=== PATIENT | male | born 1960 | race Caucasian/White ===

== ENCOUNTER → 2018-06-06 | Outpatient (CLI) | payer OTHER ==
[~2018-06-06] MED LIST: ACET-1748 PO; AML5 PO; MYLL PO; OMEP-218 PO; WAR75 PO
[2018-06-06 07:31] LABS: PLATELET COUNT, AUTOMATED 239 K/uL (150-450)
--- NOTE | 2018-06-06 08:20 | EKG ---
[place] [facility] [place] NAME: HUONG MARLEY : [id number] MR: [id number]: [id number] EXAM DATE: ORDERING PHYSICIAN: OMER MARROQUIN TECHNOLOGIST: Xenia Rocha Reason : Blood Pressure : / mmHG Vent. Rate : 055 BPM Atrial Rate : 055 BPM P-R Int : 178 ms QRS Dur : 092 ms QT Int : 440 ms P-R-T Axes : 015 063 054 degrees QTc Int : 420 ms Sinus bradycardia Question previous inferior infarct Abnormal ECG No previous ECGs available Confirmed by BOB MATOS [id number] on 06/07/2018 5:37:30 AM Referred By: OMER MARROQUIN Confirmed By:BOB MATOS
== END ==
LOC: LAB 07:10
PROVIDERS: ATTEND Orthopaedic Surgery
DX: Z01.812 Encounter for preprocedural laboratory examination (principal); Z01.810 Encounter for preprocedural cardiovascular examination; R00.1 Bradycardia, unspecified; R94.31 Abnormal electrocardiogram [ECG] [EKG]
CPT/HCPCS: 36415; 82040; 82247; 82310; 82374; 82435; 82565; 82947; 84075; 84132; 84155; 84295; 84450; 84460; 84520; 85025; 93005

== ENCOUNTER → 2018-11-21 | Outpatient (CLI) | payer OTHER | LOC: RESP 04:36 | PROVIDERS: ATTEND Nurse Practitioner Family | DX: G47.33 Obstructive sleep apnea (adult) (pediatric) (principal) ==